=== PATIENT | male | born 1995 | race African-American/Black ===

== ENCOUNTER 2022-07-14 12:36 | Emergency (ER) | payer MEDICAID ==
[~2022-07-14] VITALS: Ht 175.3 cm; Wt 62.1 kg
[2022-07-14 12:41] VITALS: BP 130/72
--- NOTE | 2022-07-14 12:55 | NUR ---
PRESENTS TO ED FOR POSSIBLE HIV EXPOSURE, REQUESTING POST EXPOSURE PROPHYLAXIS. PER PT HE WAS EXPOSED TO A NEW PARTNER YESTERDAY, PROTECTION "SLIPPED OFF", DENIES ANY ITCHING, PAIN, BLEEDING. PT WITH RAPID HIV RESULT NEGATIVE. ALLERGY: SHRIMP PMH: DENIES
[2022-07-14 13:38] LABS: BASOPHILS % (AUTO) 0.8 % (0.0-2.0); EOSINOPHILS # (AUTO) 0.1 K/uL (0-0.4); EOSINOPHILS % (AUTO) 2.2 % (0.0-4.0); HEMATOCRIT 43.5 % (36-52); HEMOGLOBIN 14.7 g/dL (12.0-18.0); LYMPHOCYTES # (AUTO) 1.7 K/uL (2.0-11.5); LYMPHOCYTES % (AUTO) 43.4 % (20.5-51.1); MEAN CORPUSCULAR HEMOGLOBIN 29 pg (27-31); MEAN CORPUSCULAR HGB CONC 34 g/dL (33-37); MEAN CORPUSCULAR VOLUME 84.6 fL (80-94); MONOCYTES # (AUTO) 0.3 K/uL (0.8-1.0); MONOCYTES % (AUTO) 8.5 % (1.7-9.3); NEUTROPHILS # (AUTO) 1.8 K/uL (1.8-7.7); NEUTROPHILS % (AUTO) 45.1 % (42.2-75.2); PLATELET COUNT (AUTO) 245 K/uL (140-450); RED BLOOD CELL COUNT(AUTO) 5.14 MIL/uL (4.20-6.10); RED CELL DISTRIBUTION WIDTH 12.4 % (11.6-13.7)
[2022-07-14 13:58] LABS: ALBUMIN 4.2 g/dL (3.4-5.0); ANION GAP 13.1 (8-16); CARBON DIOXIDE 29.1 mmol/L (21-32); POTASSIUM 4.2 mmol/L (3.5-5.1); TOTAL BILIRUBIN 0.4 mg/dL (0.0-1.0)
[2022-07-14] MEDS ORDERED: RALT400T PO (14:26)
[2022-07-14] MEDS ORDERED: EMTR1TAB12 PO (14:26)
--- NOTE | 2022-07-14 14:35 | NUR ---
Patient discharged with v/s stable. Written and verbal after care instructions given and explained. Patient alert, oriented and verbalized understanding of instructions. Ambulatory with steady gait. All questions addressed prior to discharge. ID band removed. Patient advised to follow up with PMD. Rx of TRUVATA given. Patient educated on indication of medication including possible reaction and side effects. Opportunity to ask questions provided and answered.
== END 2022-07-14 14:35 | disposition home or self-care (01) ==
LOC: MED 12:36
DX: Z20.6 Contact with and (suspected) exposure to human immunodeficiency virus [HIV] (principal); R03.0 Elevated blood-pressure reading, without diagnosis of hypertension; Z79.899 Other long term (current) drug therapy; Z91.013 Allergy to seafood
CPT/HCPCS: 36415; 80053; 85025; 99283